=== PATIENT | female | born 1965 ===

== ENCOUNTER 2018-10-18 17:33 | Emergency (ER) | payer SELFPAY ==
[~2018-10-18] VITALS: Ht 160 cm; Wt 72.6 kg
--- OUTSIDE RECORDS SUMMARY | 2018-10-18 17:42 | XMS REPORT | Continuity of Care Document ---
Author Author [facility] Address Unknown Phone Unavailable Allergies Active Description Code Type Severity Reaction Onset Reported/Identified Relationship to Patient Clinical Status Yes Penicillins Drug Allergy N/A N/A 02/27/2011 Medications There is no data. Problems Date Dx Coded Attending Type Code Diagnosis Diagnosed By 02/27/2011 ARLIN LUCERO DO 274.01 ACUTE GOUTY ARTHROPATHY 02/27/2011 ARLIN LUCERO DO V18.0 FAM HX DIABETES MELLITUS 02/27/2011 AMAYA ANDRE APRN 274.01 ACUTE GOUTY ARTHROPATHY 02/27/2011 AMAYA ANDRE APRN V18.0 FAM HX DIABETES MELLITUS 02/27/2011 ARLIN LUCERO DO 274.01 ACUTE GOUTY ARTHROPATHY 02/27/2011 ARLIN LUCERO DO V18.0 FAM HX DIABETES MELLITUS 03/06/2011 ARLIN LUCERO DO 719.47 PAIN IN JOINT INVOLVING ANKLE AND FOOT 03/06/2011 AMAYA ANDRE APRN 719.47 PAIN IN JOINT INVOLVING ANKLE AND FOOT 03/06/2011 ARLIN LUCERO DO 719.47 PAIN IN JOINT INVOLVING ANKLE AND FOOT 08/21/2013 AMAYA ANDRE APRN 719.46 PAIN IN JOINT INVOLVING LOWER LEG 08/21/2013 ARLIN LUCERO DO 719.46 PAIN IN JOINT INVOLVING LOWER LEG Procedures Code [place] [address] XRAY ANKLE R COMP MIN, 3 VIEWS 06/15/2013 93923 MRI EXTREMITY JOINT, LOWER RIGHT, W/O CONTRAST 08/21/2013 ORTHOPEDI YONATAN SAWANT 08/21/2013 Results There is no data. Encounters ACCT No. Visit Date/Time Discharge Status Pt. Type Provider Facility Loc./Unit Complaint [id number] 11/15/2013 14:05:00 11/15/2013 23:59:59 CLS Outpatient ARLIN LUCERO DO [id number] 08/21/2013 14:40:00 08/21/2013 23:59:59 CLS Outpatient AMAYA ANDRE APRN [id number] 06/15/2013 10:50:00 06/15/2013 23:59:59 CLS Outpatient ARLIN LUCERO DO
[2018-10-18 17:49] LABS: BASOPHILS % (AUTO) 0 % (0-10); EOSINOPHILS # (AUTO) 0.5 10^3/uL (0.0-0.3); EOSINOPHILS % (AUTO) 6 % (0-10); HEMATOCRIT 46 % (35-52); HEMOGLOBIN 15.6 G/DL (11.5-16.0); LYMPHOCYTES # (AUTO) 2.9 X 10^3 (1.0-4.0); LYMPHOCYTES % (AUTO) 31 % (12-44); MEAN CORPUSCULAR HEMOGLOBIN 30 PG (25-34); MEAN CORPUSCULAR HGB CONC 34 G/DL (32-36); MEAN CORPUSCULAR VOLUME 87 FL (80-99); MEAN PLATELET VOLUME 10.7 FL (7.4-10.4); MONOCYTES # (AUTO) 0.5 X 10^3 (0.0-1.0); MONOCYTES % (AUTO) 5 % (0-12); NEUTROPHILS # (AUTO) 5.5 X 10^3 (1.8-7.8); NEUTROPHILS % (AUTO) 58 % (42-75); PLATELET COUNT 273 10^3/uL (130-400); RED CELL DISTRIBUTION WIDTH 12.9 % (10.0-14.5); WHITE BLOOD COUNT 9.5 10^3/uL (4.3-11.0)
[2018-10-18] MEDS ORDERED: ASPIRIN 81 MG CHEW (CHILDREN'S ASA) PO ONE (18:00)
[2018-10-18] MEDS ORDERED: KETOROLAC 30 MG/ML VIAL IVP ONE (18:00)
[2018-10-18 18:11] LABS: ALANINE AMINOTRANSFERASE 23 U/L (0-55); ALBUMIN 4.6 GM/DL (3.2-4.5); ALKALINE PHOSPHATASE 95 U/L (40-136); BILIRUBIN,TOTAL 0.3 MG/DL (0.1-1.0); BUN/CREATININE RATIO 25; CALCIUM 9.5 MG/DL (8.5-10.1); CARBON DIOXIDE 26 MMOL/L (21-32); CHLORIDE 103 MMOL/L (98-107); CREATININE SERUM 0.76 MG/DL (0.60-1.30); GFR ESTIMATED > 60; GLUCOSE 98 MG/DL (70-105); LIPASE 61 U/L (8-78); MAGNESIUM 2.3 MG/DL (1.8-2.4); POTASSIUM 3.8 MMOL/L (3.6-5.0); SODIUM 138 MMOL/L (135-145); TOTAL PROTEIN 8.1 GM/DL (6.4-8.2)
--- NOTE | 2018-10-18 18:12 | Diagnostic Imaging Report ---
EXAMINATION: Portable erect AP chest at 5:54 p.m. INDICATION: Chest pain. COMPARISON: There are no prior studies available for comparison. FINDINGS: The heart size is within normal limits. There are a few crowded bronchovascular markings in the right infrahilar region, but there is no evidence for pneumonia or for a pleural effusion. There is no sign of failure either. The mediastinum is not widened. The osseous structures are intact. IMPRESSION: There is no evidence for an acute cardiopulmonary abnormality. Dictated by: Dictated on workstation # [id number]
[2018-10-18 18:17] LABS: MYOGLOBIN SERUM 29.7 NG/ML (10.0-92.0)
--- NOTE | 2018-10-18 18:29 | ED Chest Pain ---
General Chief Complaint: Cardiac/General Problems Stated Complaint: CHEST PAIN Nursing Triage Note: AMB TO ROOM C/O CHEST PAIN FOR 2 WEEKS HAS HAD COUGH 1 WEEEK PRIOR TENDER TO TOUCH IN CHEST WALL Nursing Sepsis Screen: No Definite Risk History of Present Illness Date Seen by Provider: Oct 18, 2018 Time Seen by Provider: 17:33 Initial Comments 53-year-old female presents for a 2 week history of chest pain. She states it is palpable on the left sternal border. She reports approximately a 2 month history of coughing. The pain is worse when she takes a deep breath. She denies any diaphoresis or nausea associated with the pain. She occasionally feels as though she her heart is racing. She has no previous cardiac history. Her mother was diabetic and did require heart catheterization. No other significant family history of cardiac disease. 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 NTG SL PUG MILL OPERATOR: No Associated Symptoms: No diaphoresis, No dizziness, No fatigue, No fever/chills , No headache, No heartburn, No nausea/vomiting Allergies and Home Medications Allergies Coded Allergies: No Known Drug Allergies (Unverified , 10/18/18) Home Medications Guaifenesin/Codeine Phosphate 120 Ml Liquid, 5 ML PO Q6H Prescribed by: CATARINA CROUCH on 10/18/18 1523 Patient Home Medication List Home Medication List Reviewed: Yes Review of Systems Review of Systems Constitutional: no symptoms reported, see HPI Respiratory: See HPI, Cough Cardiovascular: See HPI, Chest Pain All Other Systems Reviewed Negative Unless Noted: Yes Past Izojygh-Ckjtcm-Xewjhd Hx Past Med/Social Hx: Reviewed Nursing Past Med/Soc Hx Patient Social History Alcohol Use: Denies Use Recreational Drug Use: No Smoking Status: Never a Smoker Recent Foreign Travel: No Contact w/Someone Who Travel: No Recent Infectious Disease Expo: No Past Medical History Surgeries: No Respiratory: No Cardiac: No Neurological: No Genitourinary: No Gastrointestinal: No Musculoskeletal: No Endocrine: No HEENT: No Cancer: No Psychosocial: No Integumentary: No Blood Disorders: No Physical Exam Vital Signs Vital Signs - First Documented 10/18/18 10/18/18 17:33 18:53 Temp 96.0 Pulse 68 Resp 18 B/P (MAP) 118/85 (96) Pulse Ox 98 O2 Delivery Room Air Capillary Refill : Greater Than 3 Seconds Height, Weight, BMI Height: 5'3.00" Weight: 160lbs. oz. 72.827629nd; BMI Method:Stated General Appearance: No Apparent Distress, WD/WN HEENT: PERRL/EOMI, TMs Normal, Normal ENT Inspection, Pharynx Normal Neck: Full Range of Motion, Normal Inspection, Non Tender, Supple Respiratory: Chest Non Tender, Lungs Clear, Normal Breath Sounds Cardiovascular: Regular Rate, Rhythm, No Edema, No Murmur, Normal Peripheral Pulses, Other (tenderness to palpation along the left sternal border, no masses palpated. Pain in this exact area increases with a deep inspiration) Gastrointestinal: Normal Bowel Sounds, Non Tender, Soft Neurologic/Psychiatric: Alert, Oriented x3, No Motor/Sensory Deficits, Normal Mood/Affect Skin: Normal Color, Warm/Dry Lymphatic: No Adenopathy Progress/Results/Core Measures Results/Orders Lab Results Laboratory Tests Test 10/18/18 17:41 Range/Units White Blood Count 9.5 4.3-11.0 10^3/uL Red Blood Count 5.29 4.35-5.85 10^6/uL Hemoglobin 15.6 11.5-16.0 G/DL Hematocrit 46 35-52 % Mean Corpuscular Volume 87 80-99 FL Mean Corpuscular Hemoglobin 30 25-34 PG Mean Corpuscular Hemoglobin Concent 34 32-36 G/DL Red Cell Distribution Width 12.9 10.0-14.5 % Platelet Count 273 130-400 10^3/uL Mean Platelet Volume 10.7 H 7.4-10.4 FL Neutrophils (%) (Auto) 58 42-75 % Lymphocytes (%) (Auto) 31 12-44 % Monocytes (%) (Auto) 5 0-12 % Eosinophils (%) (Auto) 6 0-10 % Basophils (%) (Auto) 0 0-10 % Neutrophils # (Auto) 5.5 1.8-7.8 X 10^3 Lymphocytes # (Auto) 2.9 1.0-4.0 X 10^3 Monocytes # (Auto) 0.5 0.0-1.0 X 10^3 Eosinophils # (Auto) 0.5 H 0.0-0.3 10^3/uL Basophils # (Auto) 0.0 0.0-0.1 10^3/uL Prothrombin Time 13.0 12.2-14.7 SEC INR Comment 1.0 0.8-1.4 Activated Partial Thromboplast Time 37 H 24-35 SEC Sodium Level 138 135-145 MMOL/L Potassium Level 3.8 3.6-5.0 MMOL/L Chloride Level 103 98-107 MMOL/L Carbon Dioxide Level 26 21-32 MMOL/L Anion Gap 9 5-14 MMOL/L Blood Urea Nitrogen 19 H 7-18 MG/DL Creatinine 0.76 0.60-1.30 MG/DL Estimat Glomerular Filtration Rate > 60 BUN/Creatinine Ratio 25 Glucose Level 98 70-105 MG/DL Calcium Level 9.5 8.5-10.1 MG/DL Corrected Calcium 8.5-10.1 MG/DL Magnesium Level 2.3 1.8-2.4 MG/DL Total Bilirubin 0.3 0.1-1.0 MG/DL Aspartate Amino Transf (AST/SGOT) 27 5-34 U/L Alanine Aminotransferase (ALT/SGPT) 23 0-55 U/L Alkaline Phosphatase 95 40-136 U/L Myoglobin 29.7 10.0-92.0 NG/ML Troponin I < 0.028 <0.028 NG/ML B-Type Natriuretic Peptide 28.6 <100.0 PG/ML Total Protein 8.1 6.4-8.2 GM/DL Albumin 4.6 H 3.2-4.5 GM/DL Lipase 61 8-78 U/L My Orders Orders - CATARINA CROUCH Aspirin Chewable Tablet (Baby Aspirin Ch (10/18/18 18:00) Ketorolac Injection (Toradol Injection) (10/18/18 18:00) Promethazine/ Codeine Syrup (Phenergan W (10/18/18 18:44) Medications Given in ED Current Medications Medications Dose Ordered Sig/Ramon Route Start Time Stop Time Status Last Admin Dose Admin Aspirin 324 mg ONCE ONCE PO 10/18/18 18:00 10/18/18 18:01 DC 10/18/18 18:00 324 MG Ketorolac Tromethamine 30 mg ONCE ONCE IVP 10/18/18 18:00 10/18/18 18:01 DC 10/18/18 18:00 30 MG Promethazine HCl/ Codeine 5 ml STK-MED ONCE .ROUTE 10/18/18 18:44 10/18/18 18:49 DC 10/18/18 18:51 5 ML Vital Signs/I&O 10/18/18 10/18/18 17:33 18:53 Temp 96.0 Pulse 68 66 Resp 18 B/P (MAP) 118/85 (96) 139/79 (99) Pulse Ox 98 O2 Delivery Room Air Blood Pressure Mean: 96 Progress Progress Note : Time: 17:33 Progress Note Patient seen and evaluated, will start her chest pain workup. She did not take her aspirin today so we'll administer 324 mg of chewable aspirin. Patient evaluated by myself and Dr. Koch. 181 patient denies any change in her symptoms, initial labs are all negative. Awaiting troponin. 1844 troponin negative and EKG are normal. Will give promethazine with codeine for the cough. Discharge instructions and return precautions reviewed with the patient and her family. All questions answered. Initial ECG Impression Date: Oct 18, 2018 Initial ECG Impression Time: 17:37 Initial ECG Rate: 68 Initial ECG Rhythm: Normal Sinus Initial ECG Intervals: Normal Initial ECG Intervals MO 132, QRSD 94, QTc 404, QTc 4:30. [place] P 44, QRS 42, T 18. Initial ECG Impression: Normal Initial ECG Comparisson: No Previous ECG Available Comment Reviewed with Dr. Koch, he concurred with interpretation. Diagnostic Imaging Diagonstic Imaging: Xray Plain Films/CT/US/NM/MRI: chest Comments NAME: [facility] REC#: [id number] PT STATUS: REG ER : 1965 PHYSICIAN: OLINDA KOCH MD ADMIT DATE: 10/18/18/ER Draft Date of Exam:10/18/18 CHEST 1 VIEW, AP/PA ONLY EXAMINATION: Portable erect AP chest at 5:54 p.m. INDICATION: Chest pain. COMPARISON: There are no prior studies available for comparison. FINDINGS: The heart size is within normal limits. There are a few crowded bronchovascular markings in the right infrahilar region, but there is no evidence for pneumonia or for a pleural effusion. There is no sign of failure either. The mediastinum is not widened. The osseous structures are intact. IMPRESSION: There is no evidence for an acute cardiopulmonary abnormality. Dictated on workstation # [id number] Dict: 10/18/18 1801 Trans: 10/18/18 1811 [id number] Interpreted by: SHASHI GARZA MD Electronically signed by: Reviewed: Reviewed by Me Departure Impression Primary Impression: Chest pain Qualified Codes: R07.82 - Intercostal pain Additional Impressions: Costochondritis, acute Pleurisy Cough Disposition: HOME, SELF-CARE Condition: Improved Departure-Patient Inst. Decision time for Depature: 18:30 Referrals: [facility] [place] (PCP/Family) Primary Care Physician Patient Instructions: Chest Pain That Is Not Caused by the Heart (DC), Costochondritis (DC), Pleuritic Chest Pain (DC) Add. Discharge Instructions: Continue to take one aspirin daily. You may take ibuprofen 600 mg every 8 hours. Use medication as prescribed for cough. Apply warm moist compresses to her left chest wall. Establish care with a primary care provider, follow-up for referral to cardiology as needed. Return to emergency department for chest pain not relieved by the above treatment, difficulty breathing, heart palpitations, or new concerns. All discharge instructions reviewed with patient and/or family. Voiced understanding. Scripts Guaifenesin/Codeine Phosphate (Codeine-Guaifen 10-100 mg/5 ml) 120 Ml Liquid 5 ML PO Q6H, #1 EA 0 Refills Prov: CATARINA CROCUH 10/18/18 CATARINA CROUCH Oct 18, 2018 18:29
[2018-10-18] MEDS ORDERED: GUAI120L56 PO (18:38)
[2018-10-18] MEDS ORDERED: PROMETHAZINE/ CODEINE SYRUP 5 ML UDC ONE (18:44)
[2018-10-18 18:53] VITALS: BP 139/79
== END 2018-10-18 18:58 | disposition home or self-care (01) ==
LOC: EDUNIT# 17:33 → ER 17:35
DX: R07.81 Pleurodynia (principal); M94.0 Chondrocostal junction syndrome [Tietze]
CPT/HCPCS: 36415; 71045; 80053; 83690; 83735; 83874; 83880; 84484; 85025; 85610; 85730; 93005; 93041